=== PATIENT | female | born 2000 | race Hispanic/Latino ===

== ENCOUNTER 2024-04-12 10:46 | Day surgery (SDC) | payer OTHER ==
[2024-04-12 11:15] VITALS: BMI 20.5
[2024-04-12] MEDS ORDERED: hydrALAZINE 20 MG/ML VIAL SLOW IVP PRN (12:19)
[2024-04-12] MEDS: Cyclobenzaprine 10 MG TAB PO SCH (12:34)
== END 2024-04-12 13:55 | disposition home or self-care (01) ==
LOC: CSHLD/OP 10:46
PROVIDERS: ATTEND Family Medicine
DX: O99.891 Other specified diseases and conditions complicating pregnancy (principal); R10.32 Left lower quadrant pain; Z79.82 Long term (current) use of aspirin; Z79.899 Other long term (current) drug therapy; Z3A.26 26 weeks gestation of pregnancy